=== PATIENT | female | born 1965 | race Two or more races ===

== ENCOUNTER 2021-05-16 06:40 | Day surgery (SDC) | payer OTHER ==
[~2021-05-16 06:40] MED LIST: CRESTOR20 MG PO; ETODOLAC500 M1 PO; [UNRECOGNIZED DRUG - OTHER] PO
== END 2021-05-16 17:35 | disposition home or self-care (01) ==
LOC: CIR.AMB 06:40
PROVIDERS: ATTEND Surgery
DX: C50.911 Malignant neoplasm of unspecified site of right female breast (principal); N62 Hypertrophy of breast

== ENCOUNTER 2021-05-20 14:15 | Emergency (ER) | payer OTHER ==
[~2021-05-20] VITALS: Ht 172.7 cm; Wt 83.9 kg
[2021-05-20] MEDS ORDERED: BACTRIM DS TAB1 EACH (14:27)
== END 2021-05-20 19:28 | disposition home or self-care (01) ==
LOC: ER 14:15
DX: K59.00 Constipation, unspecified (principal)

== ENCOUNTER 2021-05-30 11:38 | Outpatient (CLI) | payer OTHER ==
[~2021-05-30 11:38] MED LIST changes: +BACTRIM DS TAB1 EACH
[2021-06-20] MEDS ORDERED: PERCOCET 5-3251 EACH PO (13:33)
== END 2021-05-30 13:15 | disposition home or self-care (01) ==
LOC: SONOGRAMA 11:38
PROVIDERS: ATTEND Surgery
DX: C50.411 Malignant neoplasm of upper-outer quadrant of right female breast (principal); N61.1 Abscess of the breast and nipple

== ENCOUNTER 2021-06-13 06:24 | Day surgery (SDC) | payer OTHER ==
[~2021-06-13 06:24] MED LIST changes: -PERCOCET 5-3251 EACH PO; -ULTRACET PO
[2021-06-13] MEDS ORDERED: ULTRACET PO (09:11)
== END 2021-06-13 13:58 | disposition home or self-care (01) ==
LOC: CIR.AMB 06:24
PROVIDERS: ATTEND Surgery
DX: C50.011 Malignant neoplasm of nipple and areola, right female breast (principal); E78.5 Hyperlipidemia, unspecified; Z86.16 Personal history of COVID-19; J32.9 Chronic sinusitis, unspecified

== ENCOUNTER → 2021-06-13 | Outpatient (CLI) | payer OTHER ==
[~2021-06-13] MED LIST changes: +PERCOCET 5-3251 EACH PO; +ULTRACET PO
== END | disposition home or self-care (01) ==
LOC: SONOGRAMA 11:53
PROVIDERS: ATTEND Surgery
DX: N61.1 Abscess of the breast and nipple (principal)

== ENCOUNTER → 2021-06-20 | Day surgery (SDC) | payer OTHER ==
[~2021-06-20] VITALS: Ht 172.7 cm; Wt 83.9 kg
[~2021-06-20] MED LIST changes: +PERCOCET 5-3251 EACH PO; +ULTRACET PO
== END | disposition home or self-care (01) ==
LOC: ER 06:13 → CIR.AMB 07:13
PROVIDERS: ATTEND Surgery
DX: T85.618A Breakdown (mechanical) of other specified internal prosthetic devices, implants and grafts, initial encounter (principal); C50.911 Malignant neoplasm of unspecified site of right female breast; Z86.16 Personal history of COVID-19; E78.00 Pure hypercholesterolemia, unspecified

== ENCOUNTER 2021-08-03 17:10 | Emergency (ER) | payer OTHER ==
[~2021-08-03] VITALS: Ht 172.7 cm; Wt 86.2 kg
[2021-08-03] MEDS ORDERED: VOLTAREN ARTHRI20 GM TP (17:30)
[2021-08-03] MEDS ORDERED: AMOX1TAB5 PO (19:19)
== END 2021-08-03 19:29 | disposition home or self-care (01) ==
LOC: ER 17:10
DX: S81.021A Laceration with foreign body, right knee, initial encounter (principal); Y93.I9 Activity, other involving external motion; Y92.410 Unspecified street and highway as the place of occurrence of the external cause; V00.831A Fall from motorized mobility scooter, initial encounter

== ENCOUNTER 2021-08-14 09:32 | Emergency (ER) | payer OTHER ==
[~2021-08-14] VITALS: Ht 172.7 cm; Wt 83.9 kg
[~2021-08-14 09:32] MED LIST changes: +AMOX1TAB5 PO; +VOLTAREN ARTHRI20 GM TP
== END 2021-08-14 10:25 | disposition home or self-care (01) ==
LOC: ER 09:32
DX: Z48.02 Encounter for removal of sutures (principal)

== ENCOUNTER → 2021-09-17 | Outpatient (CLI) | payer OTHER | END | disposition home or self-care (01) | LOC: NUCLEAR 09-02 09:00 | PROVIDERS: ATTEND Physical Medicine & Rehabilitation | DX: I82.621 Acute embolism and thrombosis of deep veins of right upper extremity (principal); R22.31 Localized swelling, mass and lump, right upper limb ==

== ENCOUNTER 2022-01-02 09:44 | Outpatient (CLI) | payer OTHER | END 2022-01-02 09:46 | disposition home or self-care (01) | LOC: NUCLEAR 09:44 | PROVIDERS: ATTEND Internal Medicine | DX: I42.7 Cardiomyopathy due to drug and external agent (principal) ==

== ENCOUNTER → 2022-01-09 | Outpatient (CLI) | payer OTHER | END | disposition home or self-care (01) | LOC: NUCLEAR 07:45 | PROVIDERS: ATTEND Internal Medicine | DX: R60.0 Localized edema (principal) ==

== ENCOUNTER 2022-01-16 10:03 | Outpatient (CLI) | payer OTHER | END 2022-01-16 10:21 | disposition home or self-care (01) | LOC: TOM 10:03 | PROVIDERS: ATTEND Internal Medicine | DX: C50.411 Malignant neoplasm of upper-outer quadrant of right female breast (principal); R91.1 Solitary pulmonary nodule ==

== ENCOUNTER → 2022-05-08 | Outpatient (CLI) | payer OTHER | END | disposition home or self-care (01) | LOC: NUCLEAR 07:42 | PROVIDERS: ATTEND Internal Medicine | DX: I42.7 Cardiomyopathy due to drug and external agent (principal) ==

== ENCOUNTER 2022-08-28 10:05 | Outpatient (CLI) | payer OTHER | END 2022-08-28 10:09 | disposition home or self-care (01) | LOC: NUCLEAR 10:05 | PROVIDERS: ATTEND Internal Medicine | DX: I42.7 Cardiomyopathy due to drug and external agent (principal) ==

== ENCOUNTER 2023-02-19 09:34 | Outpatient (CLI) | payer OTHER | END 2023-02-19 09:56 | disposition home or self-care (01) | LOC: TOM 09:34 | PROVIDERS: ATTEND Internal Medicine | DX: R91.1 Solitary pulmonary nodule (principal); C50.411 Malignant neoplasm of upper-outer quadrant of right female breast ==

== ENCOUNTER 2023-03-26 08:00 | Day surgery (SDC) | payer OTHER ==
[~2023-03-26 08:00] MED LIST changes: +COZAAR100 MG PO; +FEMARA2.5 MG PO; +HORIZANT300 MG PO
[2023-03-26] MEDS ORDERED: TRAM1TAB98 PO (12:01)
== END 2023-03-26 16:30 | disposition home or self-care (01) ==
LOC: CIR.AMB 08:00
PROVIDERS: ATTEND Surgery
DX: C50.011 Malignant neoplasm of nipple and areola, right female breast (principal); I10 Essential (primary) hypertension; Z20.822 Contact with and (suspected) exposure to COVID-19